=== PATIENT | female | born 1980 | race Caucasian/White ===

== ENCOUNTER → 2023-11-14 10:27 | Outpatient (REF) | payer OTHER, SELFPAY | LOC: WDC 10:27 | PROVIDERS: ATTENDING PHYSICIAN Obstetrics & Gynecology Gynecology; FAMILY PHYSICIAN Family Medicine | DX: Z12.31 Encounter for screening mammogram for malignant neoplasm of breast (principal) | CPT/HCPCS: 77063; 77067 ==

== ENCOUNTER → 2025-02-20 12:24 | Outpatient (REF) | payer OTHER, SELFPAY | LOC: WDC 12:24 | PROVIDERS: ATTENDING PHYSICIAN Obstetrics & Gynecology Gynecology | DX: Z12.31 Encounter for screening mammogram for malignant neoplasm of breast (principal) | CPT/HCPCS: 77063; 77067 ==

== ENCOUNTER → 2025-07-03 08:09 | Outpatient (REF) | payer OTHER, SELFPAY | LOC: HWRCS 08:09 | DX: I49.3 Ventricular premature depolarization (principal); I49.9 Cardiac arrhythmia, unspecified | CPT/HCPCS: 93306 ==